=== PATIENT | male | born 1990 | race Caucasian/White ===

== ENCOUNTER 2017-05-15 12:36 | Emergency (ER) | payer OTHER ==
[2017-05-15 12:43] VITALS: BP 151/96
--- NOTE | 2017-05-15 13:41 | XRAY Preliminary Report ---
Exam: XR Ankle 3 View RT IMPRESSION: 1. Soft tissue swelling but no acute osseous abnormality. 2. Mild degenerative change. No subluxation. [facility] SITE ID: [id number]
--- NOTE | 2017-05-15 13:44 | XRAY Report ---
EXAM: RIGHT ANKLE RADIOGRAPHY EXAM DATE: 05/15/2017 01:08 PM. CLINICAL HISTORY: Injured ankle while running several days ago. Swelling and pain. COMPARISON: None. TECHNIQUE: 3 views. 4 images are provided. FINDINGS: Bones: No fractures or bone lesions. Joints: Mild degenerative change. No effusion. No subluxations. The ankle mortise is normally aligned . Soft Tissues: Diffuse soft tissue swelling, most pronounced laterally. IMPRESSION: 1. Soft tissue swelling but no acute osseous abnormality. 2. Mild degenerative change. No subluxation. [facility] Referring Provider Line: [phone] SITE ID: [id number]
--- NOTE | 2017-05-15 14:13 | ED Physician Documentation ---
PD HPI LOWER EXT INJURY - Stated complaint Stated Complaint: R ANKLE INJ - Chief complaint Chief Complaint: Ext Problem - History obtained from History obtained from: Patient - History of Present Illness PD HPI LOW EXT INJURY LOCATION: Right (Inversion injury of the right ankle while running 4 nights ago with persistent pain and swelling but is able to walk and bear weight. No other injuries.) Review of Systems Constitutional: reports: Reviewed and negative Cardiac: reports: Reviewed and negative Respiratory: reports: Reviewed and negative PD PAST MEDICAL HISTORY - Past Medical History Past Medical History: No - Past Surgical History Past Surgical History: No - Present Medications Home Medications: Ambulatory Orders Medication Instructions Recorded Confirmed Ibuprofen [Motrin] 800 mg PO Q8H PRN #30 tablet 05/15/17 - Allergies Allergies/Adverse Reactions: Allergies Allergy/AdvReac Type Severity Reaction Status Date / Time Penicillins Allergy Unknown Verified 05/15/17 12:41 - Social History Does the pt smoke?: No Smoking Status: Current some day smoker Does the pt drink ETOH?: Yes - Immunizations Immunizations are current?: Yes PD ED PE NORMAL - Vitals Vital signs reviewed: Yes - General General: Alert and oriented X 3, No acute distress - Extremities Extremities: Other (Right ankle was swollen on both sides and is tender medially , but no bony tenderness of the foot or proximal fibula.) - Neuro Neuro: Alert and oriented X 3, Normal speech Results - Vitals Vitals: Vital Signs - 24 hr 05/15/17 12:39 Temperature 36.6 C Heart Rate 82 Respiratory 18 Rate Blood Pressure 151/96 H O2 Saturation 100 Oxygen O2 Source Room air - Rads (name of study) Right ankle Radiology: EMP read contemporaneously (Soft tissue swelling, no fracture) Departure - Departure Disposition: 01 Home, Self Care Clinical Impression: Right ankle sprain Qualifiers: Encounter type: initial encounter Involved ligament of ankle: unspecified ligament Qualified Code(s): S93.401A - Sprain of unspecified ligament of right ankle, initial encounter Condition: Good Record reviewed to determine appropriate education?: Yes Instructions: ED Sprain Ankle W X Ray Prescriptions: Ibuprofen [Motrin] 800 mg PO Q8H PRN #30 tablet PRN Reason: PAIN &/OR FEVER Comments: [place] if not [place]. Return if worse. Your blood pressure was elevated today on check into the emergency department. This does not mean that you have hypertension, it is a common phenomenon to come to the emergency department and have elevated blood pressure. I recommend that she see her primary care physician within the week to have it rechecked when you are feeling better.
== END 2017-05-15 14:19 | disposition home or self-care (01) ==
LOC: ED 12:36
DX: S93.401A Sprain of unspecified ligament of right ankle, initial encounter (principal); X50.1XXA Overexertion from prolonged static or awkward postures, initial encounter; Y93.02 Activity, running; R03.0 Elevated blood-pressure reading, without diagnosis of hypertension
CPT/HCPCS: 99283

== ENCOUNTER 2017-08-22 04:56 | Emergency (ER) | payer OTHER ==
[2017-08-22 05:02] VITALS: BP 154/88
[2017-08-22] MEDS ORDERED: KETOROLAC 60 MG/2 ML VIAL IM STA (05:12)
[2017-08-22] MEDS ORDERED: DEXAMETHASONE 10 MG/ML VIAL PO STA (05:13)
[2017-08-22] MEDS ORDERED: AZITHROMYCIN 250 MG TABLET PO STA (05:13)
--- NOTE | 2017-08-22 05:16 | ED Physician Documentation ---
PD HPI HEENT - Stated complaint Stated Complaint: FEVER,SORE THROAT - Chief complaint Chief Complaint: Fever - History obtained from History obtained from: Patient - History of Present Illness Timing - onset: How many days ago (3) Timing - details: Gradual onset, Still present Location: Throat Worsens: Swalllowing Associated symptoms: Fever, Unable to swallow, Swollen nodes. No: Congestion, Rhinorrhea, Facial swelling Similar symptoms before: Work up / diagnostics, Treatment Recently seen: Not recently seen - Additional information Additional information: Patient is a 26 year old male with no significant past medical history who is presenting to the emergency department for sore throat and fever. patient states that the symptoms have been going on all weekend. Patient states that [place] so he came to the emergency department for evaluation. Review of Systems Constitutional: reports: Fever, Chills Eyes: denies: Decreased vision, Photophobia Ears: denies: Ear pain, Drainage/discharge, Foreign body Nose: denies: Rhinorrhea / runny nose, Congestion Throat: reports: Sore throat Cardiac: denies: Chest pain / pressure, Palpitations Respiratory: denies: Dyspnea, Cough, Wheezing GI: denies: Nausea, Vomiting : reports: Reviewed and negative Skin: denies: Rash, Lesions Musculoskeletal: reports: Reviewed and negative Neurologic: denies: Generalized weakness, Focal weakness, Headache, Head injury Immunocompromised: denies: Immunocompromised PD PAST MEDICAL HISTORY - Past Medical History Past Medical History: No - Past Surgical History Past Surgical History: No - Present Medications Home Medications: Ambulatory Orders Medication Instructions Recorded Confirmed Azithromycin 500 mg PO DAILY #4 tablet 08/22/17 - Allergies Allergies/Adverse Reactions: Allergies Allergy/AdvReac Type Severity Reaction Status Date / Time Penicillins Allergy Unknown Verified 08/22/17 05:02 - Social History Does the pt smoke?: No Smoking Status: Never smoker Does the pt drink ETOH?: Yes Does the pt have substance abuse?: No - Immunizations Immunizations are current?: Yes - POLST Patient has POLST: No PD ED PE NORMAL - Vitals Vital signs reviewed: Yes - General General: Alert and oriented X 3, No acute distress, Well developed/nourished - HEENT HEENT: Atraumatic, PERRL - Neck Neck: Supple, no meningeal sign, No JVD - Cardiac Cardiac: RRR, No murmur - Respiratory Respiratory: No respiratory distress, Clear bilaterally - Abdomen Abdomen: Soft, Non tender, Non distended - Derm Derm: Normal color, Warm and dry, No rash - Extremities Extremities: No deformity, Normal ROM s pain, No edema - Neuro Neuro: Alert and oriented X 3, No motor deficit, No sensory deficit, Normal speech - Psych Psych: Normal mood, Normal affect PD ED PE EXPANDED - HEENT HEENT: R TM dull, L TM dull, Moist mucous membranes, Pharyngeal erythema, Swollen tonsils, Tonsillar exudate Results - Vitals Vitals: Vital Signs - 24 hr 08/22/17 04:59 Temperature 37.1 C Heart Rate 84 Respiratory 20 Rate Blood Pressure 154/88 H O2 Saturation 97 Oxygen O2 Source Room air - Labs Labs: Laboratory Tests 08/22/17 05:11 Group A Strep Rapid Negative PD MEDICAL DECISION MAKING - ED course Complexity details: reviewed old records, reviewed results, re-evaluated patient , considered differential, d/w patient ED course: Patient was seen and examined at bedside. rapid strep was performed and was negative but patient clinically had strep throat. Patient was treated with decadron, toradol and azithromycin. Patient required no further work up at this time and was stable for discharge with outpatient follow up. Departure - Departure Disposition: 01 Home, Self Care Clinical Impression: Pharyngitis Condition: Good Instructions: ED Strep Pharyngitis Poss Follow-Up: SHAISTA MONTGOMERY [Primary Care Provider] - Within 3 Days Prescriptions: Azithromycin 500 mg PO DAILY #4 tablet Comments: It appears that you have strep throat. You had your first dose of antibiotics today and will need to take it for the next 4 days. You can take motrin or tylenol as needed for pain. You should follow up with your doctor if your symptoms perist. You may return to the emergency department at any time for new , worsening or uncontrollable symptoms. Forms: Activity restrictions
[2017-08-22] MEDS ORDERED: AZITHROMYCIN 250 MG TABLET PO ONE (05:26)
[2017-08-22] MEDS ORDERED: KETOROLAC 60 MG/2 ML VIAL ONE (05:26)
[2017-08-22] MEDS ORDERED: DEXAMETHASONE 10 MG/ML VIAL ONE (05:26)
[2017-08-22 05:35] LABS: RAPID STREP SCREEN REAGENT QC YELLOW (YELLOW)
== END 2017-08-22 05:47 | disposition home or self-care (01) ==
LOC: ED 04:56
DX: J02.9 Acute pharyngitis, unspecified (principal)
CPT/HCPCS: 87070; 87430; 96372; 99283; A9270

== ENCOUNTER 2019-02-06 20:29 | Emergency (ER) | payer OTHER ==
--- NOTE | 2019-02-06 20:38 | ED Physician Documentation ---
History of Present Illness - Stated complaint Stated Complaint: FLU SYMPTOMS - Chief complaint Chief Complaint: Fever - History obtained from History obtained from: Patient - History of Present Illness Timing: Today Improved by: nothing Worsened by: no exacerbating factors - Additonal information Additional information: fever since this morning, Tmax 103. "neck's been hurting" (per patient). Left work at noon (early) due to not feeling well. nausea but tolerates most PO (had "a little" emesis), but increasingly frequent diarrhea. Took tylenol at noon and again at 6 PM. Review of Systems Constitutional: reports: Fever, Fatigue Cardiac: reports: Reviewed and negative Respiratory: reports: Reviewed and negative GI: reports: Nausea, Vomiting (tolerates most PO, only brief period of emesis e arlier today), Diarrhea. denies: Abdominal Pain, Bloody / black stool : denies: Dysuria, Frequency Musculoskeletal: reports: Neck pain. denies: Back pain PD PAST MEDICAL HISTORY - Past Medical History Past Medical History: No - Past Surgical History Past Surgical History: No - Present Medications Home Medications: Ambulatory Orders Medication Instructions Recorded Confirmed Azithromycin 500 mg PO DAILY #4 tablet 08/22/17 Ondansetron Odt [Zofran] 4 mg TL Q6H PRN #10 tablet 02/06/19 - Allergies Allergies/Adverse Reactions: Allergies Allergy/AdvReac Type Severity Reaction Status Date / Time Penicillins Allergy Unknown Verified 08/22/17 05:02 - Social History Does the pt smoke?: No Smoking Status: Never smoker Does the pt drink ETOH?: Yes Does the pt have substance abuse?: No - Immunizations Immunizations are current?: Yes - POLST Patient has POLST: No PD ED PE NORMAL - Vitals Vital signs reviewed: Yes - General General: Alert and oriented X 3, No acute distress, Well developed/nourished - HEENT HEENT: Moist mucous membranes - Neck Neck: Supple, no meningeal sign - Cardiac Cardiac: RRR, No murmur - Respiratory Respiratory: No respiratory distress, Clear bilaterally - Abdomen Abdomen: Soft, Non tender - Back Back: No CVA TTP - Derm Derm: Normal color, Warm and dry Results - Vitals Vitals: Vital Signs - 24 hr 02/06/19 02/06/19 20:33 22:55 Temperature 38.3 C H 36.1 C L Heart Rate 110 H 89 Respiratory 20 18 Rate Blood Pressure 137/82 H 117/79 O2 Saturation 94 97 Oxygen O2 Source Room air - Labs Labs: Microbiology 02/06/19 21:17 Campylobacter Antigen Assay - Final Stool Laboratory Tests 02/06/19 02/06/19 20:58 21:17 C. difficile Tox B Gene NEGATIVE Influenza A (Rapid) Negative Influenza B (Rapid) Negative PD MEDICAL DECISION MAKING - ED course Complexity details: reviewed results, re-evaluated patient, considered differential, d/w patient, d/w family Departure - Departure Disposition: 01 Home, Self Care Clinical Impression: Diarrhea, Fever Condition: Good Instructions: ED Diarrhea Viral, ED Diet Vomiting Diarrhea, ED Fever Unconf Cause Follow-Up: SHAISTA MONTGOMERY [Primary Care Provider] - (2-3 days) Prescriptions: Ondansetron Odt [Zofran] 4 mg TL Q6H PRN #10 tablet PRN Reason: Nausea / Vomiting Forms: Activity restrictions Discharge Date/Time: 02/06/19 22:56
[2019-02-06] MEDS ORDERED: IBUPROFEN 600 MG TABLET PO STA (20:52)
[2019-02-06 22:55] VITALS: BP 117/79
== END 2019-02-06 22:56 | disposition home or self-care (01) ==
LOC: ED 20:29
DX: R19.7 Diarrhea, unspecified (principal); R50.9 Fever, unspecified
CPT/HCPCS: 87045; 87046; 87275; 87276; 87493; 99283; A9270

== ENCOUNTER 2019-03-20 16:57 | Emergency (ER) | payer OTHER ==
[2019-03-20 17:06] VITALS: BP 130/90
[2019-03-20] MEDS ORDERED: SULFAMETH/TRIMETH DS 800/160 MG TABLET PO STA (17:22)
[2019-03-20] MEDS ORDERED: cephALEXin 250 MG CAPSULE PO STA (17:29)
--- NOTE | 2019-03-20 17:29 | ED Physician Documentation ---
History of Present Illness - Stated complaint Stated Complaint: BITE LT ARM - Chief complaint Chief Complaint: General - History obtained from History obtained from: Patient - History of Present Illness Timing: Other (2 days of the painful lesion on the left deltoid without fevers or chills.) Review of Systems Constitutional: denies: Fever, Myalgias Ears: denies: Ear pain Nose: denies: Rhinorrhea / runny nose, Congestion PD PAST MEDICAL HISTORY - Past Medical History Past Medical History: No - Past Surgical History Past Surgical History: No - Present Medications Home Medications: Ambulatory Orders Medication Instructions Recorded Confirmed Azithromycin 500 mg PO DAILY #4 tablet 08/22/17 Ondansetron Odt [Zofran] 4 mg TL Q6H PRN #10 tablet 02/06/19 Cephalexin [Keflex] 500 mg PO Q6H #28 capsule 03/20/19 Sulfamethoxazole/Trimethoprim 1 each PO BID #14 tablet 03/20/19 [Sulfamethoxazole-Tmp Ds Tablet] - Allergies Allergies/Adverse Reactions: Allergies Allergy/AdvReac Type Severity Reaction Status Date / Time Penicillins Allergy Unknown Verified 03/20/19 17:06 - Social History Does the pt smoke?: No Smoking Status: Never smoker Does the pt drink ETOH?: Yes Does the pt have substance abuse?: No - Immunizations Immunizations are current?: Yes - POLST Patient has POLST: No PD ED PE NORMAL - Vitals Vital signs reviewed: Yes - General General: Alert and oriented X 3, No acute distress - Extremities Extremities: Other (Small area of weeping pointed cellulitis without abscess on the left deltoid which was cultured during exam.) - Neuro Neuro: Alert and oriented X 3, Normal speech Results - Vitals Vitals: Vital Signs - 24 hr 03/20/19 17:03 Temperature 36.5 C Heart Rate 86 Respiratory 18 Rate Blood Pressure 130/90 H O2 Saturation 96 Oxygen O2 Source Room air Departure - Departure Disposition: 01 Home, Self Care Clinical Impression: Cellulitis Qualifiers: Site of cellulitis: extremity Site of cellulitis of extremity: upper extremity Laterality: left Qualified Code(s): L03.114 - Cellulitis of left upper limb Condition: Good Record reviewed to determine appropriate education?: Yes Instructions: Cellulitis Dc Prescriptions: Cephalexin [Keflex] 500 mg PO Q6H #28 capsule Sulfamethoxazole/Trimethoprim [Sulfamethoxazole-Tmp Ds Tablet] 1 each PO BID #14 tablet Comments: We are performing a wound culture, the results should be done in 48-72 hours. If antibiotic change is necessary we will call you. Return if worse in the meantime, especially if you develop increased pain, fevers, cannot keep down the medication. Otherwise follow-up with your physician in approximately 2-3 days.
== END 2019-03-20 17:35 | disposition home or self-care (01) ==
LOC: ED 16:57
DX: L03.114 Cellulitis of left upper limb (principal)
CPT/HCPCS: 87070; 87205; 99283; A9270